=== PATIENT | male | born 1980 | race Two or more races ===

== ENCOUNTER 2016-06-25 22:00 | Emergency (ER) | payer OTHER ==
[2016-06-25] MEDS ORDERED: ASPIRIN 81 MG TABLET, CHEWABLE PO ONE ×2 (22:06→22:07)
--- NOTE | 2016-06-25 22:11 | ER Document Report ---
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 He states he has no pain at this time. States that he has had chest pain with anxiety in the past. I have greeted and performed a rapid initial assessment of this patient. A comprehensive ED assessment, evaluation of the patient, analysis of test results , and completion of the medical decision making process will be contacted by additional ED providers. TRAVEL OUTSIDE OF THE [place] IN LAST 30 DAYS: No - Related Data Allergies/Adverse Reactions: promethazine HCl [From Phenergan] Allergy (Verified 01/13/16 20:41) Past Medical History GI Medical History: Reports: Hx Gastroesophageal Reflux Disease - Immunizations Hx Diphtheria, Pertussis, Tetanus Vaccination: Yes
--- NOTE | 2016-06-26 09:39 | EKG REPORT ---
SEVERITY:- NORMAL ECG - SINUS RHYTHM ST ELEV, PROBABLE NORMAL EARLY REPOL PATTERN : Confirmed by: Birdgett Garza MD 26-Jun-2016 09:39:15
== END 2016-06-25 22:26 | disposition left against medical advice (07) ==
LOC: ER 22:00
DX: F41.9 Anxiety disorder, unspecified (principal); R07.9 Chest pain, unspecified; Z88.8 Allergy status to other drugs, medicaments and biological substances; Z87.19 Personal history of other diseases of the digestive system; Z53.20 Procedure and treatment not carried out because of patient's decision for unspecified reasons
CPT/HCPCS: 93005; 93010; 99281

== ENCOUNTER 2016-06-29 10:45 | Emergency (ER) | payer OTHER ==
--- NOTE | 2016-06-29 10:57 | ER Document Report ---
ED Medical Screen (RME) - General Stated Complaint: CHEST PAIN Notes: 36 yo male c/o pain to ribcage, upper back x 2 days. hurts with movement and deep breathing. pt has hx/o anxiety. had panic attack last week with syncopal episode. pt was evaluted by pcm after attack. denies chest pain, no shortness of breath. + chest wall sore soreness. TRAVEL OUTSIDE OF THE [place] IN LAST 30 DAYS: No - Related Data Allergies/Adverse Reactions: promethazine HCl [From Phenergan] Allergy (Verified 01/13/16 20:41) Past Medical History GI Medical History: Reports: Hx Gastroesophageal Reflux Disease - Immunizations Hx Diphtheria, Pertussis, Tetanus Vaccination: Yes
--- NOTE | 2016-06-29 12:32 | ER Document Report ---
ED General - General Chief Complaint: Chest Wall Pain Stated Complaint: CHEST PAIN Mode of Arrival: Ambulatory Information source: Patient Notes: 36 y/o M presents to ED c/o persistent pain to bilateral upper chest wall and back over the last 2 days. Patient reports history of anxiety and states had an anxiety attack 2 days ago after which he developed pain which she describes as achiness/soreness to bilateral upper chest and bilateral upper back. Reports pain is worse with movement of torso and deep breathing. Denies fevers , shortness of breath, nausea or vomiting, or diaphoresis. Reports multiple similar episodes in the past. TRAVEL OUTSIDE OF THE [place] IN LAST 30 DAYS: No - HPI Onset/Duration: Persistent Quality of pain: Achy Severity: Mild Pain Level: 2 Associated symptoms: Body/muscle aches Exacerbated by: Movement, Deep breathing Similar symptoms previously: Yes Recently seen / treated by doctor: Yes - Related Data Allergies/Adverse Reactions: promethazine HCl [From Phenergan] Allergy (Verified 06/29/16 10:57) Past Medical History - General Information source: Patient - Social History Smoking Status: Current Every Day Smoker Chew tobacco use (# tins/day): No Frequency of alcohol use: None Drug Abuse: None Lives with: Family Family History: DM, Hyperlipidemia, Hypertension, Reviewed & Not Pertinent Patient has suicidal ideation: No Patient has homicidal ideation: No Renal/ Medical History: Denies: Hx Peritoneal Dialysis GI Medical History: Reports: Hx Gastroesophageal Reflux Disease Psychiatric Medical History: Reports: Hx Anxiety Surgical Hx: Negative - Immunizations Hx Diphtheria, Pertussis, Tetanus Vaccination: Yes Review of Systems - Review of Systems Constitutional: No symptoms reported EENT: No symptoms reported Cardiovascular: See HPI Respiratory: See HPI Gastrointestinal: No symptoms reported Genitourinary: No symptoms reported Male Genitourinary: No symptoms reported Musculoskeletal: No symptoms reported Skin: No symptoms reported Hematologic/Lymphatic: No symptoms reported Neurological/Psychological: No symptoms reported -: Yes All other systems reviewed and negative Physical Exam - Vital signs Interpretation: Normal - General General appearance: Appears well, Alert In distress: None - HEENT Head: Normocephalic, Atraumatic Eyes: Normal Pupils: PERRL - Respiratory Respiratory status: No respiratory distress Chest status: Tender - Mild tenderness to palpation to bilateral upper chest wall and bilateral upper back. Patient reports reproduced pain with palpation is the pain he has been feeling over the last 2 days., Pain on movement. No: Nontender, Chest mass, Ecchymosis, No pleuritic chest pain, Pain with cough, Pain with deep breathing, Wounds, Accessory muscle use, Prolonged expirations, Splinting, Other Breath sounds: Normal - CTAB Chest palpation: Tender. No: Normal, Flail segment, [place] frothy sputum, Purulent sputum, Subcutaneous emphysema, Sucking chest wound, Ecchymosis, Wounds , Other - Cardiovascular Rhythm: Regular Heart sounds: Normal auscultation Murmur: No Friction rub: No Nora's crunch: No Pulses: Normal: Radial Normal capillary refill: Yes - Abdominal Inspection: Normal Distension: No distension Bowel sounds: Normal Tenderness: Nontender Organomegaly: No organomegaly - Back Back: Normal, Nontender - Extremities General upper extremity: Normal inspection, Nontender, Normal color, Normal ROM , Normal strength, Normal temperature. No: Tender, Edema General lower extremity: Normal inspection, Nontender, Normal color, Normal ROM , Normal strength, Normal temperature, Normal weight bearing. No: Tender, Edema - Neurological Neuro grossly intact: Yes Cognition: Normal Orientation: AAOx4 [place] Coma Scale Eye Opening: Spontaneous [place] Coma Scale Verbal: Oriented [place] Coma Scale Motor: Obeys Commands [place] Coma Scale Total: 15 Speech: Normal Motor strength normal: LUE, RUE, LLE, RLE Sensory: Normal - Psychological Associated symptoms: Normal affect, Normal mood - Skin Skin Temperature: Warm Skin Moisture: Dry Skin Color: Normal Course - Re-evaluation Re-evalutation: 06/29/16 12:10 Patient hemodynamically stable, in no distress, afebrile, and appears well- hydrated. Patient is very well-appearing and presents with chest wall pain not suggestive of pulmonary embolus, cardiac ischemia, aortic dissection, or other serious etiology. Given the extremely low risk of these diagnoses further testing and evaluation for these possibilities does not appear to be indicated at this time. The patient appears stable for discharge and has been instructed to return if the symptoms worsen or change in any way. Patient presentation, evaluation, and treatment plan discussed with ED physician Dr. Ferreira who concurs with evaluation and treatment. Discharge - Discharge Clinical Impression: Chest wall pain Condition: Stable Disposition: HOME, SELF-CARE Instructions: Chest Wall Pain ([facility]), Anti-Inflammatory Medication ([facility]), Muscle Relaxers ([facility]), Chest Pain of Unclear Cause ([facility]) Additional Instructions: Follow-up with your primary care provider tomorrow as discussed. Return to the emergency department for any worsening symptoms or concerns. Prescriptions: Methocarbamol [Robaxin 500 mg Tablet] 500 mg PO Q8HP PRN #10 tablet PRN Reason: Naproxen [Naprosyn 375 Mg Tablet] 375 mg PO BIDP PRN #10 tablet PRN Reason: Referrals: ALLEY HOWE DO [NO LOCAL MD] - Follow up tomorrow
== END 2016-06-29 12:37 | disposition home or self-care (01) ==
LOC: ER 10:45
DX: R07.9 Chest pain, unspecified (principal); M79.1 Myalgia; F17.200 Nicotine dependence, unspecified, uncomplicated
CPT/HCPCS: 99283

== ENCOUNTER 2016-07-02 01:43 | Emergency (ER) | payer SELFPAY ==
[2016-07-02] MEDS ORDERED: ASPIRIN 81 MG TABLET, CHEWABLE PO ONE (02:00)
[2016-07-02 03:08] LABS: ABSOLUTE EOSINOPHILS # (AUTO) 0.3 10^3/uL (0.0-0.6); ABSOLUTE LYMPHOCYTES (AUTO) 2.7 10^3/uL (0.5-4.7); ABSOLUTE MONOCYTES (AUTO) 0.5 10^3/uL (0.1-1.4); ABSOLUTE NEUT (AUTO) 3.4 10^3/uL (1.7-8.2); BASOPHILS % (AUTO) 0.6 % (0-2); EOSINOPHILS % (AUTO) 3.9 % (0-6); HEMATOCRIT 42.6 % (37.9-51.0); HEMOGLOBIN 14.7 g/dL (13.5-17.0); HGB HCT DIFFERENCE 1.5; LYMPHOCYTES % (AUTO) 38.4 % (13-45); MEAN CORPUSCULAR HEMOGLOBIN 30.2 pg (27.0-33.4); MEAN CORPUSCULAR HGB CONC 34.6 g/dL (32.0-36.0); MEAN CORPUSCULAR VOLUME 87 fl (80-97); MONOCYTES % (AUTO) 7.9 % (3-13); RED BLOOD COUNT 4.89 10^6/uL (4.35-5.55); RED CELL DISTRIBUTION WIDTH 12.8 % (11.5-14.0); SEGMENTED NEUTROPHILS % (AUTO) 49.2 % (42-78); WHITE BLOOD COUNT 6.9 10^3/uL (4.0-10.5)
[2016-07-02 03:24] LABS: ALANINE AMINOTRANSFERASE 49 U/L (21-72); ALBUMIN 3.8 g/dL (3.5-5.0); ALKALINE PHOSPHATASE 69 U/L (38-126); ANION GAP 11 (5-19); ASPARTATE AMINO TRANSFERASE 27 U/L (17-59); BILIRUBIN,TOTAL 0.4 mg/dL (0.2-1.3); BLOOD UREA NITROGEN 15 mg/dL (7-20); CALCIUM 9.4 mg/dL (8.4-10.2); CARBON DIOXIDE 27 mmol/L (22-30); CHLORIDE 104 mmol/L (98-107); CREATINE KINASE 225 U/L (55-170); CREATININE RESULT 0.78 mg/dL (0.52-1.25); GLUCOSE 85 mg/dL (75-110); POTASSIUM 3.8 mmol/L (3.6-5.0); SODIUM 142.2 mmol/L (137-145); TOTAL PROTEIN 6.7 g/dL (6.3-8.2)
[2016-07-02 03:35] LABS: CREATINE KINASE MB 0.96 ng/mL (<4.55)
[2016-07-02 03:38] LABS: TROPONIN I < 0.012 ng/mL
--- NOTE | 2016-07-02 06:20 | ER Document Report ---
[id number] Mode of Arrival: Ambulatory Information source: Patient Notes: 36-year-old male presents with epigastric burning sensation. Of now 6 month duration. Patient denies any fevers chills nausea vomiting or diarrhea. Patient notes it hurts when you palpate on his chest. Patient has been seen multiple times for similar complaints diagnosed with costochondritis. Patient notes he has nausea vomiting daily heartburn daily TRAVEL OUTSIDE OF THE [place] IN LAST 30 DAYS: No - HPI Onset: Other Onset/Duration: Persistent Quality of pain: Burning Severity: Mild Pain Level: 1 Associated symptoms: Chest pain Exacerbated by: Food Relieved by: Denies Similar symptoms previously: Yes Recently seen / treated by doctor: Yes - Related Data Allergies/Adverse Reactions: promethazine HCl [From Phenergan] Allergy (Verified 07/02/16 03:09) Past Medical History - Social History Smoking Status: Never Smoker Cigarette use (# per day): No Chew tobacco use (# tins/day): No Smoking Education Provided: No Frequency of alcohol use: None Drug Abuse: None Family History: DM, Hyperlipidemia, Hypertension, Reviewed & Not Pertinent Patient has suicidal ideation: No Patient has homicidal ideation: No Renal/ Medical History: Denies: Hx Peritoneal Dialysis GI Medical History: Reports: Hx Gastroesophageal Reflux Disease Musculoskeltal Medical History: Psychiatric Medical History: Reports: Hx Anxiety Traumatic Medical History: Surgical Hx: Negative Past Surgical History: - Immunizations Hx Diphtheria, Pertussis, Tetanus Vaccination: Yes Review of Systems - Review of Systems Notes: REVIEW OF SYSTEMS: CONSTITUTIONAL : Denies fever, chills, or sweats. Denies recent illness. EENT: Denies eye, ear, throat, or mouth pain or symptoms. Denies nasal or sinus congestion or discharge. Denies throat, tongue, or mouth swelling or difficulty swallowing. CARDIOVASCULAR: Denies chest pain. Denies palpitations or racing or irregular heart beat. Denies ankle edema. RESPIRATORY: Denies cough, cold, or chest congestion. Denies shortness of breath, difficulty breathing, or wheezing. GASTROINTESTINAL: Admits nausea vomiting GENITOURINARY: Denies difficulty urinating, painful urination, burning, frequency, blood in urine, or discharge. MUSCULOSKELETAL: Denies back or neck pain or stiffness. Denies joint pain or swelling. SKIN: Denies rash, lesions or sores. HEMATOLOGIC : Denies easy bruising or bleeding. LYMPHATIC: Denies swollen, enlarged glands. NEUROLOGICAL: Denies confusion or altered mental status. Denies passing out or loss of consciousness. Denies dizziness or lightheadedness. Denies headache. Denies weakness or paralysis or loss of use of either side. Denies problems with gait or speech. Denies sensory loss, numbness, or tingling. Denies seizures. PSYCHIATRIC: Denies anxiety or stress. Denies depression, suicidal ideation, or homicidal ideation. ALL OTHER SYSTEMS REVIEWED AND NEGATIVE. Dictation was performed using [employer] voice recognition software PHYSICAL EXAMINATION: GENERAL: Well-appearing, well-nourished and in no acute distress. HEAD: Atraumatic, normocephalic. EYES: Pupils equal round and reactive to light, extraocular movements intact, sclera anicteric, conjunctiva are normal. ENT: Nares patent, oropharynx clear without exudates. Moist mucous membranes. NECK: Normal range of motion, supple without lymphadenopathy LUNGS: Breath sounds clear to auscultation bilaterally and equal. No wheezes rales or rhonchi. HEART: Regular rate and rhythm without murmurs ABDOMEN: Soft, nontender, nondistended abdomen. No guarding, no rebound. No masses appreciated. Musculoskeletal: Normal range of motion, no pitting or edema. No cyanosis. Chest wall is tender on palpation NEUROLOGICAL: Cranial nerves grossly intact. Normal speech, normal gait. Normal sensory, motor exams PSYCH: Normal mood, normal affect. SKIN: Warm, Dry, normal turgor, no rashes or lesions noted. Physical Exam - Vital signs Vitals: Temp Pulse Resp BP Pulse Ox 97.8 F 65 18 124/72 96 07/02/16 01:54 07/02/16 01:54 07/02/16 01:54 07/02/16 01:54 07/02/16 01:54 Course - Re-evaluation Re-evalutation: 07/02/16 06:17 since patient has had chest pain daily for 6 months, worsened with daily vomiting , i have suspicions that this is esophageal related rather than cardiac in nature. pt will be started on medication for this, given gi and cardiology follow up After performing a Medical Screening Examination, I estimate there is LOW risk for RUPTURED ESOPHAGUS, PNEUMOTHORAX, PULMONARY EMBOLISM, ACUTE CORONARY SYNDROME, OR THORACIC AORTIC DISSECTION, thus I consider the discharge disposition reasonable. The patient and I have discussed the diagnosis and risks , and we agree with discharging home with close follow-up. We also discussed returning to the Emergency Department immediately if new or worsening symptoms occur. We have discussed the symptoms which are most concerning (e.g., bloody sputum, worsening pain or shortness of breath) that necessitate immediate return. 07/02/16 16:59 - Vital Signs Vital signs: Temp Pulse Resp BP Pulse Ox 97.5 F 65 14 104/75 98 07/02/16 06:01 07/02/16 01:54 07/02/16 06:01 07/02/16 06:01 07/02/16 06:01 - Laboratory Result Diagrams: 07/02/16 02:35 07/02/16 02:35 Laboratory results interpreted by me: 07/02/16 02:35 Creatine Kinase 225 H - Diagnostic Test Radiology reviewed: Image reviewed, Reports reviewed - EKG Interpretation by Me EKG shows normal: Sinus rhythm, [place], Intervals, QRS Complexes Discharge - Discharge Clinical Impression: Esophagitis Chest pain Qualifiers: Chest pain type: unspecified Qualified Code(s): R07.9 - Chest pain, unspecified Condition: Stable Disposition: HOME, SELF-CARE Instructions: Chest Pain of Unclear Cause ([facility]), Esophagitis ([facility]) Prescriptions: Famotidine [Pepcid 20 mg Tablet] 20 mg PO DAILY #30 tablet Metoclopramide HCl [Reglan] 10 mg PO Q8 #20 tablet Omeprazole Magnesium [Prilosec Otc] 20 mg PO DAILY #30 tablet.dr Referrals: BERNADETTE FULLER MD [ACTIVE STAFF] - Follow up in 1 week TONEY REBOLLEDO MD [ACTIVE STAFF] - Follow up in 1 week
[2016-07-02 06:26] VITALS: BP 104/75
--- NOTE | 2016-07-02 09:26 | EKG REPORT ---
SEVERITY:- ABNORMAL ECG - SINUS RHYTHM ST ELEVATION SUGGESTS PERICARDITIS : Confirmed by: Angelina Grove 02-Jul-2016 09:25:38
== END 2016-07-02 06:30 | disposition home or self-care (01) ==
LOC: ER 01:43
DX: K20.9 Esophagitis, unspecified (principal); R12 Heartburn; R07.9 Chest pain, unspecified; R11.2 Nausea with vomiting, unspecified; Z88.8 Allergy status to other drugs, medicaments and biological substances
CPT/HCPCS: 36415; 71010; 80053; 82550; 82553; 84484; 85025; 93005; 93010; 99285

== ENCOUNTER → 2016-11-21 | Outpatient (CLI) | payer SELFPAY ==
[2016-11-21 11:16] LABS: SPERM MORPHOLOGY SENT TO REFERENC LAB
[2016-11-21 12:37] LABS: ROUND CELL CONC. 1.9 X10^6/mL (<5.1); SA DILUTION CNT 1 267; SA DILUTION CNT 2 275; SA DILUTION FACTOR 2; SA NONMOTILE CONCENTRATION 25.8 X10^6/mL; SA NONMOTILE COUNT1 244; SA NONMOTILE COUNT2 271; SA ROUND CELL COUNT1 18; SA ROUND CELL COUNT2 20; SA SPERM MOTILE CONC 28.4 X10^6mL; TOTAL SPERM COUNT 162.6 X10^6 (>33.0)
[2016-11-21 12:38] LABS: SPERM PROGRESSION 2
== END ==
LOC: LAB 10:52
PROVIDERS: ATTEND Specialist
DX: Z31.41 Encounter for fertility testing (principal)
CPT/HCPCS: 89320

== ENCOUNTER 2016-12-17 15:17 | Emergency (ER) | payer SELFPAY ==
[2016-12-17 15:23] VITALS: BP 123/78
--- NOTE | 2016-12-17 15:49 | ER Document Report ---
HPI - HPI Patient complains to provider of: sinus infection Pain Level: 4 Context: 36 yo male presents with 10 day hx/o sinus congestion, pressure, facial pain, sore throat Associated Symptoms: Earache, Fever, Headache, Sinus pain/drainage, Sore throat Exacerbated by: Denies Relieved by: Denies Similar symptoms previously: Yes Recently seen / treated by doctor: No - ROS Systems Reviewed and Negative: Yes All other systems reviewed and negative - DERM Skin Color: Normal Past Medical History - General Information source: Patient - Social History Smoking Status: Never Smoker Frequency of alcohol use: None Drug Abuse: None Lives with: Family Family History: DM, Hyperlipidemia, Hypertension, Reviewed & Not Pertinent - Medical History Medical History: Negative Renal/ Medical History: Denies: Hx Peritoneal Dialysis GI Medical History: Reports: Hx Gastroesophageal Reflux Disease Musculoskeltal Medical History: Psychiatric Medical History: Reports: Hx Anxiety Traumatic Medical History: Past Surgical History: - Immunizations Hx Diphtheria, Pertussis, Tetanus Vaccination: Yes Vertical Provider Document - CONSTITUTIONAL Agree With Documented VS: Yes Exam Limitations: No Limitations General Appearance: WD/WN, No Apparent Distress - INFECTION CONTROL TRAVEL OUTSIDE OF THE [place] IN LAST 30 DAYS: Yes - [facility] last week - HEENT HEENT: Atraumatic, PERRLA, Pharyngeal Tenderness, Pharyngeal Erythema Notes: TMs dull and retracted, sinuses tap tender - NECK Neck: Supple, Lymphadenopathy-Left, Lymphadenopathy-Right - RESPIRATORY Respiratory: Breath Sounds Normal, No Respiratory Distress O2 Sat by Pulse Oximetry: 98 - CARDIOVASCULAR Cardiovascular: Regular Rate, Regular Rhythm - NEURO Level of Consciousness: Awake, Alert, Appropriate - DERM Integumentary: Warm, Dry, No Rash Course - Vital Signs Vital signs: Temp Pulse Resp BP Pulse Ox 98.2 F 76 18 123/78 98 12/17/16 15:20 12/17/16 15:20 12/17/16 15:20 12/17/16 15:20 12/17/16 15:20 Discharge - Discharge Clinical Impression: Sinusitis Qualifiers: Sinusitis location: unspecified location Chronicity: acute Recurrence: non- recurrent Qualified Code(s): J01.90 - Acute sinusitis, unspecified Condition: Stable Disposition: HOME, SELF-CARE Instructions: Sinusitis ([facility]), Antibiotic Therapy ([facility]) Additional Instructions: take medications as prescribed push fluids follow up primary care if symptoms persist Prescriptions: Amoxicillin Trihydrate [Amoxil 875 mg Tablet] 1 tab PO BID #20 tablet Fluticasone Propionate [Flonase Nasal [place] 50 Mcg/[place] 16 gm] 2 spray NASL DAILY #1 inhaler Prednisone [Deltasone 20 mg Tablet] 2 tab PO BID #16 tablet
== END 2016-12-17 15:50 | disposition home or self-care (01) ==
LOC: ER 15:17
DX: J01.90 Acute sinusitis, unspecified (principal); F41.9 Anxiety disorder, unspecified; K21.9 Gastro-esophageal reflux disease without esophagitis; Z83.3 Family history of diabetes mellitus; Z82.49 Family history of ischemic heart disease and other diseases of the circulatory system
CPT/HCPCS: 99283

== ENCOUNTER 2017-03-16 23:05 | Emergency (ER) | payer BC ==
[2017-03-16] MEDS ORDERED: ASPIRIN 81 MG TABLET, CHEWABLE PO ONE (23:13)
[2017-03-16] MEDS ORDERED: NORMAL SALINE 1000 ML 1,000 ML IV ONE (23:14)
[2017-03-16 23:38] LABS: ABSOLUTE BASOPHILS # (AUTO) 0.1 10^3/uL (0.0-0.2); ABSOLUTE EOSINOPHILS # (AUTO) 0.2 10^3/uL (0.0-0.6); ABSOLUTE LYMPHOCYTES (AUTO) 2.5 10^3/uL (0.5-4.7); ABSOLUTE MONOCYTES (AUTO) 0.4 10^3/uL (0.1-1.4); ABSOLUTE NEUT (AUTO) 3.3 10^3/uL (1.7-8.2); BASOPHILS % (AUTO) 0.8 % (0-2); EOSINOPHILS % (AUTO) 2.4 % (0-6); HEMATOCRIT 40.9 % (37.9-51.0); HEMOGLOBIN 14.7 g/dL (13.5-17.0); HGB HCT DIFFERENCE 3.2; LYMPHOCYTES % (AUTO) 38.8 % (13-45); MEAN CORPUSCULAR HEMOGLOBIN 31.3 pg (27.0-33.4); MEAN CORPUSCULAR HGB CONC 35.9 g/dL (32.0-36.0); MEAN CORPUSCULAR VOLUME 87 fl (80-97); MONOCYTES % (AUTO) 6.3 % (3-13); RED BLOOD COUNT 4.69 10^6/uL (4.35-5.55); RED CELL DISTRIBUTION WIDTH 12.9 % (11.5-14.0); SEGMENTED NEUTROPHILS % (AUTO) 51.7 % (42-78); WHITE BLOOD COUNT 6.4 10^3/uL (4.0-10.5)
[2017-03-16 23:50] LABS: ALANINE AMINOTRANSFERASE 47 U/L (21-72); ALBUMIN 4.2 g/dL (3.5-5.0); ALKALINE PHOSPHATASE 72 U/L (38-126); ANION GAP 11 (5-19); ASPARTATE AMINO TRANSFERASE 23 U/L (17-59); BILIRUBIN,DIRECT 0.4 mg/dL (0.0-0.4); BILIRUBIN,TOTAL 0.5 mg/dL (0.2-1.3); BLOOD UREA NITROGEN 13 mg/dL (7-20); CALCIUM 9.2 mg/dL (8.4-10.2); CARBON DIOXIDE 26 mmol/L (22-30); CHLORIDE 107 mmol/L (98-107); CREATINE KINASE 152 U/L (55-170); GLUCOSE 117 mg/dL (75-110); POTASSIUM 3.7 mmol/L (3.6-5.0); SODIUM 143.7 mmol/L (137-145); TOTAL PROTEIN 6.6 g/dL (6.3-8.2)
[2017-03-17 00:02] LABS: CREATINE KINASE MB 0.69 ng/mL (<4.55); TROPONIN I < 0.012 ng/mL
[2017-03-17] MEDS ORDERED: NORMAL SALINE 1000 ML 1,000 ML IV ONE (00:18)
--- NOTE | 2017-03-17 00:21 | ER Document Report ---
ED Syncope and Near Syncope - General Mode of Arrival: Medic Information source: Patient TRAVEL OUTSIDE OF THE [place] IN LAST 30 DAYS: Yes - [facility] last week - HPI Patient complains to provider of: Fainting Symptoms prior to episode: Lightheaded Position/Activity at time of episode: Standing Context: Other - see notes above Current symptoms: Other - see notes above <LOWELL CASTILLO - Last Filed: 03/17/17 00:33> <JUAN AVILA - Last Filed: 03/17/17 04:10> - General Stated Complaint: FAINTING Time Seen by Provider: 03/16/17 23:12 Notes: 37 year old male with history of chest pain and panic attacks presents to the ED complaining of having a near syncopal episode earlier this evening. Patient reports that he developed some chest pain which radiated to his left shoulder while at work. Patient felt light headed while driving home which was exacerbated when he stood up in his drive way. Patient walked to his room, removed his shirt, and proceeded to fall. Patient states that he was not having chest pain or a racing heart at the time of the fall. Patient reports this has happened once before, but lost consciousness that time. Patient denies nausea, vomiting, or abdominal pain. Patient is additionally complaining of tingling and numbness to the face, nose, and around the lips. Patient admits that he has not been well hydrated today. (LOWELL CASTILLO) - Related Data Allergies/Adverse Reactions: promethazine HCl [From Phenergan] Allergy (Verified 07/02/16 03:09) Past Medical History - General Information source: Patient - Social History Smoking Status: Current Every Day Smoker Family History: DM, Hyperlipidemia, Hypertension, Reviewed & Not Pertinent Renal/ Medical History: Denies: Hx Peritoneal Dialysis GI Medical History: Reports: Hx Gastroesophageal Reflux Disease Musculoskeltal Medical History: Psychiatric Medical History: Reports: Hx Anxiety Traumatic Medical History: Past Surgical History: - Immunizations Hx Diphtheria, Pertussis, Tetanus Vaccination: Yes <LOWELL CASTILLO - Last Filed: 03/17/17 00:33> Review of Systems - Review of Systems Constitutional: No symptoms reported EENT: No symptoms reported Cardiovascular: See HPI, Chest pain, Syncope, Lightheaded Respiratory: No symptoms reported Gastrointestinal: No symptoms reported. denies: Abdominal pain, Nausea, Vomiting Genitourinary: No symptoms reported Male Genitourinary: No symptoms reported Musculoskeletal: No symptoms reported Skin: No symptoms reported Hematologic/Lymphatic: No symptoms reported Neurological/Psychological: See HPI, Numbness - face, nose, and around the lips , Tingling - face, nose, and around the lips -: Yes All other systems reviewed and negative <LOWELL CASTILLO - Last Filed: 03/17/17 00:33> Physical Exam - Vital signs Interpretation: Normal - General General appearance: Appears well, Alert - HEENT Head: Normocephalic, Atraumatic Eyes: Normal Pupils: PERRL Mucous membranes: Dry - Respiratory Respiratory status: No respiratory distress Chest status: Nontender Breath sounds: Normal Chest palpation: Normal - Cardiovascular Rhythm: Regular Heart sounds: Normal auscultation Murmur: No - Abdominal Inspection: Normal Distension: No distension Bowel sounds: Normal Tenderness: Nontender Organomegaly: No organomegaly - Back Back: Normal, Nontender - Extremities General upper extremity: Normal inspection, Nontender, Normal color, Normal ROM , Normal temperature General lower extremity: Normal inspection, Nontender, Normal color, Normal ROM , Normal temperature, Normal weight bearing. No: Judy's sign - Neurological Neuro grossly intact: Yes Cognition: Normal Orientation: AAOx4 [place] Coma Scale Eye Opening: Spontaneous [place] Coma Scale Verbal: Oriented [place] Coma Scale Motor: Obeys Commands [place] Coma Scale Total: 15 Speech: Normal Motor strength normal: LUE, RUE, LLE, RLE Sensory: Normal - Psychological Associated symptoms: Normal affect, Normal mood - Skin Skin Temperature: Warm Skin Moisture: Dry Skin Color: Normal <JUAN AVILA - Last Filed: 03/17/17 04:10> - Vital signs Vitals: Temp 98.7 F 03/16/17 23:09 Course - Laboratory Result Diagrams: 03/16/17 23:27 03/16/17 23:27 <LOWELL CASTILLO - Last Filed: 03/17/17 00:33> - Laboratory Result Diagrams: 03/16/17 23:27 03/16/17 23:27 <JUAN AVILA - Last Filed: 03/17/17 04:10> - Re-evaluation Re-evalutation: 03/17/17 04:08 Patient is a 37-year-old male who comes in after a near syncopal episode at home. Patient initially was in A. fib with rate 130. Resolved after fluids. Patient states that he did feel his heart racing earlier. Patient had been given aspirin and nitroglycerin by EMS which made him nauseated. Patient does not have any chest pain and has not had any chest pain. Feels better after GI medications. Patient will be referred to cardiac etiology and GI for follow- up. Troponin negative 2. Patient is in normal sinus rhythm on repeat EKG and has been for most of the time in the emergency department. Feels better and would like to go home. Stable for discharge. Return if any worsening or concerning symptoms. (JUAN AVILA) - Vital Signs Vital signs: Temp Pulse Resp BP Pulse Ox 98.4 F 84 19 105/63 98 03/17/17 00:09 03/17/17 00:09 03/17/17 03:46 03/17/17 03:46 03/17/17 03:46 - Laboratory Laboratory results interpreted by me: 03/16/17 03/16/17 23:27 23:45 Glucose 117 H Urine Urobilinogen 2.0 H Discharge <LOWELL CASTILLO - Last Filed: 03/17/17 00:33> <JUAN AVILA - Last Filed: 03/17/17 04:10> - Discharge Clinical Impression: Tachycardia Syncope Qualifiers: Syncope type: unspecified Qualified Code(s): R55 - Syncope and collapse Gastritis Qualifiers: Gastritis type: unspecified gastritis Chronicity: unspecified Gastritis bleeding: without bleeding Qualified Code(s): K29.70 - Gastritis, unspecified, without bleeding Condition: Stable Disposition: HOME, SELF-CARE Instructions: Dehydration ([facility]), Gastritis ([facility]), Gastroenterology, Near Syncopal Episode ([facility]) Prescriptions: Ondansetron [Zofran Odt 4 mg Tablet] 1 tab PO Q6HP PRN #15 tab.rapdis PRN Reason: For Nausea/Vomiting Omeprazole 20 mg PO DAILY #30 tablet. Ranitidine HCl 150 mg PO BID #60 tablet Referrals: BERNADETTE FULLER MD [ACTIVE STAFF] - Follow up as needed RUBENS,SHYAMAL SRI, MD [ACTIVE STAFF] - Follow up as needed Scribe Attestation: 03/17/17 04:10 I personally performed the services described in the documentation, reviewed and edited the documentation which was dictated to the scribe in my presence, and it accurately records my words and actions. (JUAN AVILA) Scribe Documentation - Scribe Written by Scribe:: Lois Morales, 03/17/2017, 0048 acting as scribe for :: Sunil <LOWELL CASTILLO - Last Filed: 03/17/17 00:33>
--- NOTE | 2017-03-17 01:06 | RADIOLOGY REPORT (SQ) ---
EXAM DESCRIPTION: CHEST PA/LAT COMPLETED DATE/TIME: 03/17/2017 12:37 am REASON FOR STUDY: Chest pain COMPARISON: Chest x-ray 01/13/2016. EXAM PARAMETERS: NUMBER OF VIEWS: two views TECHNIQUE: Digital Frontal and Lateral radiographic views of the chest acquired. RADIATION DOSE: NA LIMITATIONS: none FINDINGS: LUNGS AND PLEURA: No consolidation, pneumothorax or pleural effusion. MEDIASTINUM AND HILAR STRUCTURES: No masses or contour abnormalities. HEART AND VASCULAR STRUCTURES: Heart normal size. No evidence for failure. BONES: No acute findings. HARDWARE: None in the chest. IMPRESSION: No acute radiographic finding in the chest. TECHNICAL DOCUMENTATION: JOB ID: [id number] [employer]- All Rights Reserved
[2017-03-17 01:21] LABS: APPEARANCE,URINE CLOUDY; BILIRUBIN,URINE NEGATIVE (NEGATIVE); GLUCOSE, URINE NEGATIVE (NEGATIVE); KETONES,URINE NEGATIVE (NEGATIVE); LEUKOCYTE ESTERASE,URINE NEGATIVE (NEGATIVE); NITRITE,URINE NEGATIVE (NEGATIVE); PROTEIN,URINE NEGATIVE (NEGATIVE); URINE SPECIFIC GRAVITY 1.018
[2017-03-17 01:35] LABS: URINE BARBITURATES SCREEN NEGATIVE; URINE METHADONE SCREEN NEGATIVE; URINE OPIATES LOW NEGATIVE; URINE PHENCYCLIDINE SCREEN NEGATIVE
[2017-03-17] MEDS ORDERED: PANTOPRAZOLE SODIUM 40 MG VIAL IV ONE (01:39)
[2017-03-17] MEDS ORDERED: ONDANSETRON HCL INJ/PF 4 MG/2 ML SDV IV ONE (01:39)
[2017-03-17] MEDS ORDERED: FAMOTIDINE INJ/PF 20 MG/2 ML SDV IV ONE (01:39)
[2017-03-17 03:49] VITALS: BP 105/63
--- NOTE | 2017-03-17 12:24 | EKG REPORT ---
SEVERITY:- ABNORMAL ECG - ATRIAL FIBRILLATION, V-RATE 104-153 ST ELEVATION SUGGESTS PERICARDITIS : Confirmed by: Bridgett Garza MD 17-Mar-2017 12:23:32
--- NOTE | 2017-03-17 12:24 | EKG REPORT ---
SEVERITY:- NORMAL ECG - SINUS RHYTHM : Confirmed by: Bridgett Garza MD 17-Mar-2017 12:23:28
== END 2017-03-17 03:51 | disposition home or self-care (01) ==
LOC: ER 23:05
DX: R55 Syncope and collapse (principal); K29.70 Gastritis, unspecified, without bleeding; I48.91 Unspecified atrial fibrillation; R20.0 Anesthesia of skin; R00.0 Tachycardia, unspecified; R20.2 Paresthesia of skin; F17.200 Nicotine dependence, unspecified, uncomplicated; Z88.8 Allergy status to other drugs, medicaments and biological substances
CPT/HCPCS: 93005 ×2; 99284; 96361; 96375; 96365; 36415; 82553; 82550; 84443; 85025; 80053; 81001; 84484; 80307; 71020; 93010 ×2; S0164; J2405; J7030 ×2; S0028

== ENCOUNTER 2018-03-13 22:09 | Emergency (ER) | payer BC ==
[2018-03-13 22:24] VITALS: BP 133/80
[2018-03-13] MEDS ORDERED: DIPHENHYDRAMINE HCL 50 MG/ML VIAL IV ONE (22:26)
[2018-03-13] MEDS ORDERED: METHYLPREDNISOLONE INJ 125 MG/2 ML SDV IV ONE (22:26)
[2018-03-13] MEDS ORDERED: FAMOTIDINE 20 MG TABLET PO ONE (22:26)
[2018-03-13] MEDS ORDERED: ONDANSETRON HCL INJ/PF 4 MG/2 ML SDV IV ONE (22:27)
[2018-03-13] MEDS ORDERED: LORAZEPAM INJ 2 MG/1 ML VIAL IV ONE (22:27)
--- NOTE | 2018-03-13 22:34 | ER Document Report ---
ED Medical Screen (RME) - General Chief Complaint: Allergic Reaction Stated Complaint: POSS ALLERGIC REACTION,DIFFICULTY BREATHING Time Seen by Provider: 03/13/18 22:25 Mode of Arrival: Ambulatory Information source: Patient, Friend Notes: Patient is a 37-year-old male who comes emergency room complaining of allergic reaction. Patient states he had a root canal performed earlier today and he was giving Tylenol 3pills for his discomfort and pain along with Zithromax/Z- Sanjiv. Patient states he is not taking any of the antibiotic but he did take at noon a Tylenol 3 and at 6 PM he took a second Tylenol 3 approximately an hour after 2 hours later he started feeling like he had shortness of breath and gets shaky all over he vomited once and is progressively getting more short of breath. He also states it feels like his throat is dry. Does not feel like his lips are getting bigger or his tongue is bigger but it feels like his mouth is dry. Patient denies any other past medical history and currently takes no medications. He states that he is very sensitive to medications and that is why he takes very little. Any rash or itching. TRAVEL OUTSIDE OF THE [place] IN LAST 30 DAYS: No - HPI Patient complains to provider of: Allergic reaction Onset: This evening Onset/Duration: Gradual, Persistent, Worse Quality of pain: No pain Severity: Severe Pain Level: 4 Associated Symptoms: Cough (nonproductive), Dizzy/lightheaded, Nausea, Shortness of breath, Sweating, Vomiting Exacerbated by: Denies Relieved by: Denies Similar symptoms previously: No Recently seen / treated by doctor: Yes - Had the root canal today - Related Data Smoking: Non-smoker Frequency of alcohol use: None Drug Abuse: None Allergies/Adverse Reactions: promethazine HCl [From Phenergan] Allergy (Verified 07/02/16 03:09) Past Medical History - General Information source: Patient - Social History Cigarette use (# per day): Yes - Half-pack a day Chew tobacco use (# tins/day): No Frequency of alcohol use: None Drug Abuse: None 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 Lives with: Family Family history: Reviewed & Not Pertinent Renal/ Medical History: Denies: Hx Peritoneal Dialysis GI Medical History: Reports: Hx Gastroesophageal Reflux Disease Musculoskeltal Medical History: Psychiatric Medical History: Reports: Hx Anxiety Traumatic Medical History: Past Surgical History: - Immunizations Hx Diphtheria, Pertussis, Tetanus Vaccination: Yes Review of Systems - Review of Systems Constitutional: No symptoms reported EENT: No symptoms reported, Difficulty swallowing Cardiovascular: No symptoms reported Respiratory: See HPI, Cough, Short of breath, Wheezing Gastrointestinal: No symptoms reported Genitourinary: No symptoms reported Male Genitourinary: No symptoms reported Musculoskeletal: No symptoms reported Skin: No symptoms reported Hematologic/Lymphatic: No symptoms reported Neurological/Psychological: No symptoms reported -: Yes All other systems reviewed and negative Physical Exam - Vital signs Vitals: Temp Pulse BP Pulse Ox 97.9 F 76 133/80 H 100 03/13/18 22:20 03/13/18 22:20 03/13/18 22:20 03/13/18 22:20 Interpretation: Hypertensive - Notes Notes: Patient is a well-nourished well-developed 37-year-old male who is in obvious distress/anxiety state. Is diaphoretic and shaking all over - General General appearance: Alert, Anxious - HEENT Head: Normocephalic, Atraumatic Eyes: Normal Nasal: Normal Mouth/Lips: Other - Physical exam the oral cavity shows no overt angioedema of the lips or tongue. He is patent. No: Angioedema Mucous membranes: Dry Pharynx: Normal. No: Blood in hypopharynx, Erythema, Exudate, Peritonsillar abscess, Post nasal drainage, Retropharyngeal abscess, Tonsillar hypertrophy, Uvular edema, Potential airway comprom. Neck: Normal. No: Anterior cervical chain, Posterior cervical chain, Brudzinski , Carotid bruit, Kernig's, Lymphadenopathy, Meningismus, Neck mass, Shotty nodes , Subcutaneous emphysema, Supple, Thyroid nodule, Thyromegally - Respiratory Respiratory status: Respiratory distress, Pursed lip breathing. No: No respiratory distress, Cyanosis, Depressed respirations, Retractions, Tachypnea, Tripod position Chest status: Nontender Breath sounds: Decreased air movement, Nonproductive cough, Wheezing. No: Productive cough, Rales, Rhonchi, Stridor Chest palpation: Normal - Abdominal Inspection: Normal - Neurological Neuro grossly intact: Yes Cognition: Normal Orientation: AAOx4 [place] Coma Scale Eye Opening: Spontaneous [place] Coma Scale Verbal: Oriented [place] Coma Scale Motor: Obeys Commands [place] Coma Scale Total: 15 - Skin Skin Temperature: Warm Skin Moisture: Diaphoretic Skin Color: Pale Course - Vital Signs Vital signs: Temp Pulse Resp BP Pulse Ox 97.9 F 76 133/80 H 100 03/13/18 22:20 03/13/18 22:20 03/13/18 22:20 03/13/18 22:20
[2018-03-13] MEDS ORDERED: IPRATROPIUM/ALBUTEROL 0.5-2.5 MG/3 ML AMPUL NEB ONE (22:39)
[2018-03-13] MEDS ORDERED: METHYLPREDNISOLONE INJ 125 MG/2 ML SDV ONE (22:41)
--- NOTE | 2018-03-13 23:32 | ER Document Report ---
ED Allergic Reaction - General Chief Complaint: Allergic Reaction Stated Complaint: POSS ALLERGIC REACTION,DIFFICULTY BREATHING Time Seen by Provider: 03/13/18 22:25 Mode of Arrival: Ambulatory Information source: Patient, Relative Notes: Patient is a 37-year-old male comes emergency room complaining of having allergic reaction. Patient had a root canal performed this morning he was given Tylenol 3 tablets. He states he took 1 tablet at noon and 1 tablet at 6 PM and 2 hours later he started getting short of breath and the shakes and vomited. Patient states he very seldom takes any kind of medication because he always has a reaction to something. He was also placed on Zithromax but states he has not taken any of the antibiotic. Patient denies any other medical problems. 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 TRAVEL OUTSIDE OF THE [place] 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 Lives with: Family Family History: DM, Hyperlipidemia, Hypertension, Reviewed & Not Pertinent Renal/ Medical History: Denies: Hx Peritoneal Dialysis GI Medical History: Reports: Hx Gastroesophageal Reflux Disease Musculoskeletal Medical History: Psychiatric Medical History: Reports: Hx Anxiety Traumatic Medical History: Past Surgical History: - Immunizations Hx Diphtheria, Pertussis, Tetanus Vaccination: Yes Review of Systems - Review of Systems Constitutional: No symptoms reported EENT: Difficulty swallowing Cardiovascular: No symptoms reported Respiratory: Short of breath, Wheezing Gastrointestinal: No symptoms reported Genitourinary: No symptoms reported Male Genitourinary: No symptoms reported Musculoskeletal: No symptoms reported Skin: No symptoms reported Hematologic/Lymphatic: No symptoms reported Neurological/Psychological: No symptoms reported -: Yes All other systems reviewed and negative Physical Exam - Vital signs Vitals: Temp Pulse BP Pulse Ox 97.9 F 76 133/80 H 100 03/13/18 22:20 03/13/18 22:20 03/13/18 22:20 03/13/18 22:20 Interpretation: Hypertensive - Notes Notes: Well-nourished well-developed 37-year-old male who is in moderate distress. He is somewhat diaphoretic. - General General appearance: Alert, Anxious - HEENT Head: Normocephalic, Atraumatic Eyes: Normal Tympanic membrane: Normal. No: Bulging Sinus: Normal. No: Mastoid, Maxillary, Redness, Swelling, Tenderness Nasal: Normal. No: Purulent discharge, Septal hematoma, Clear rhinorrhea Mouth/Lips: Normal Mucous membranes: Normal Pharynx: Normal. No: Erythema, Exudate, Peritonsillar abscess, Post nasal drainage, Retropharyngeal abscess, Tonsillar hypertrophy, Uvular edema, Potential airway comprom. Neck: Normal, Supple. No: Anterior cervical chain, Posterior cervical chain, Brudzinski, Carotid bruit, Kernig's, Lymphadenopathy, Meningismus, Neck mass, Shotty nodes, Subcutaneous emphysema, Thyroid nodule, Thyromegally - Respiratory Respiratory status: Respiratory distress, Pursed lip breathing, Tachypnea. No: Depressed respirations, Labored, Retractions, Tripod position Chest status: Nontender Breath sounds: Decreased air movement, Nonproductive cough, Wheezing. No: Productive cough, Rales, Rhonchi, Stridor Chest palpation: Normal - Cardiovascular Rhythm: Regular Heart sounds: Normal auscultation Murmur: No - Extremities General upper extremity: Normal inspection, Nontender, Normal ROM, Normal strength General lower extremity: Normal inspection, Nontender, Normal ROM, Normal strength - Neurological Neuro grossly intact: Yes Cognition: Normal Orientation: AAOx4 [place] Coma Scale Eye Opening: Spontaneous [place] Coma Scale Verbal: Oriented [place] Coma Scale Motor: Obeys Commands [place] Coma Scale Total: 15 Speech: Normal - Skin Skin Temperature: Warm Skin Moisture: Diaphoretic Skin irregularity: negative: Rash Course - Re-evaluation Re-evalutation: 03/13/18 23:33 Reexamination patient after treatment shows him to improve substantially. Matter fact patient requested I come back and reevaluate him again because he was feeling so good he wanted to leave and go home. My reevaluation shows that he is much improved he is breathing exchanging air well. He is never had rash or hives or urticaria at all on the body. I am suspicious that this may have been more of a anxiety reaction to the codeine making him feel really bad and it compounded itself into having respiratory distress type situation. At one point patient was guppy breathing not because of angioedema or the throat swelling I believe is secondary to anxiety. Once he relaxed symptomatology cleared up. I am still going to send him home on 3 days worth of steroids of 40 mg of prednisone just to make sure there was no allergic reaction hours response. And he will take Benadryl for any itch that may develop. Patient is okay with this idea. He will stop his Tylenol threes and he will only take ibuprofen for his discomfort and pain. - Vital Signs Vital signs: Temp Pulse Resp BP Pulse Ox 97.9 F 76 133/80 H 100 03/13/18 22:20 03/13/18 22:20 03/13/18 22:20 03/13/18 22:20 Discharge - Discharge Clinical Impression: Allergic reaction Qualifiers: Encounter type: initial encounter Qualified Code(s): T78.40XA - Allergy, unspecified, initial encounter Condition: Stable Disposition: HOME, SELF-CARE Instructions: Acute Allergic Reaction to Drugs ([facility]), Family Physicians / Practices Additional Instructions: Home and rest. Medication as prescribed. As we discussed the steroids to help keep the reaction from returning. You may start your other medication for the root canal the Zithromax pack. But stop the Tylenol [address] You may also take Benadryl if she should develop any type of itching. If you should have any concerns or problems return to ER for recheck. Prescriptions: Prednisone [Deltasone 20 mg Tablet] 2 tab PO DAILY #6 tablet
== END 2018-03-14 00:30 | disposition home or self-care (01) ==
LOC: ER 22:09
DX: T78.40XA Allergy, unspecified, initial encounter (principal); X58.XXXA Exposure to other specified factors, initial encounter; R11.10 Vomiting, unspecified; R06.02 Shortness of breath; R13.10 Dysphagia, unspecified; R06.2 Wheezing; R61 Generalized hyperhidrosis; F17.200 Nicotine dependence, unspecified, uncomplicated; Z88.8 Allergy status to other drugs, medicaments and biological substances
CPT/HCPCS: 94640; 99283; 96374; 96375; J2930; J2060; J2405; J7620

== ENCOUNTER 2018-05-27 01:46 | Emergency (ER) | payer BC ==
[2018-05-27 02:04] VITALS: BP 126/81
[2018-05-27] MEDS ORDERED: KETOROLAC TROMETHAMINE INJ/PF 30 MG/1 ML SDV IV ONE (02:17)
[2018-05-27] MEDS ORDERED: HALOPERIDOL LACTATE INJ 5 MG/1 ML VIAL IV ONE (02:17)
[2018-05-27] MEDS ORDERED: METOCLOPRAMIDE HCL INJ/PF 10 MG/2 ML SDV IV ONE (02:25)
--- NOTE | 2018-05-27 02:29 | ER Document Report ---
ED General - General Chief Complaint: Headache Stated Complaint: HEADACHE Time Seen by Provider: 05/27/18 02:17 Notes: Patient is a 38-year-old male without chronic medical problems who presents with a headache that has been ongoing for the past 8 hours. Patient states that the headaches are gradually in the middle of the afternoon and has gotten progressively worse since that time. He does describe it as a global, throbbing, constant headache. Lights and sounds worsen headache. He is tried Tylenol with no relief of headache. States that he has headaches in the past but has never had a headache of this degree of intensity. He has had one episode of nausea and vomiting with a headache. Denies any history personally or familial of aneurysms. No use of estrogen or history of hypercoagulation. Denies any focal weakness or numbness. No head trauma. Has not seen his primary care doctor regarding today's concerns. TRAVEL OUTSIDE OF THE [place] IN LAST 30 DAYS: No - Related Data Allergies/Adverse Reactions: promethazine HCl [From Phenergan] Allergy (Verified 07/02/16 03:09) Past Medical History - General Information source: Patient - Social History Smoking Status: Never Smoker Frequency of alcohol use: None Drug Abuse: None Lives with: Spouse/Significant other Family History: DM, Hyperlipidemia, Hypertension, Reviewed & Not Pertinent Renal/ Medical History: Denies: Hx Peritoneal Dialysis GI Medical History: Reports: Hx Gastroesophageal Reflux Disease Musculoskeletal Medical History: Psychiatric Medical History: Reports: Hx Anxiety Traumatic Medical History: Past Surgical History: - Immunizations Hx Diphtheria, Pertussis, Tetanus Vaccination: Yes Review of Systems - Review of Systems Notes: Constitutional: Negative for fever. HENT: Negative for sore throat. Eyes: Negative for visual changes. Cardiovascular: Negative for chest pain. Respiratory: Negative for shortness of breath. Gastrointestinal: Negative for abdominal pain, vomiting or diarrhea. Genitourinary: Negative for dysuria. Musculoskeletal: Negative for back pain. Skin: Negative for rash. Neurological: Positive for headache 10 point ROS negative except as marked above and in HPI. Physical Exam - Vital signs Vitals: Temp Pulse Resp BP Pulse Ox 97.5 F 53 L 12 126/81 H 99 05/27/18 02:02 05/27/18 02:02 05/27/18 02:02 05/27/18 02:02 12/30/18 02:02 Interpretation: Bradycardic Notes: PHYSICAL EXAMINATION: GENERAL: Appears moderately uncomfortable but in no acute distress HEAD: Atraumatic, normocephalic. EYES: Pupils equal round and reactive to light, extraocular movements intact, sclera anicteric, conjunctiva are normal. ENT: nares patent, oropharynx clear without exudates. Moist mucous membranes. NECK: Normal range of motion, supple without lymphadenopathy LUNGS: Breath sounds clear to auscultation bilaterally and equal. No wheezes rales or rhonchi. HEART: Regular rate and rhythm without murmurs ABDOMEN: Soft, nontender, normoactive bowel sounds. No guarding, no rebound. No masses appreciated. EXTREMITIES: Normal range of motion, no pitting or edema. No cyanosis. NEUROLOGICAL: Face symmetric. Tongue protrudes midline. Extraocular motions intact. Pupils are 2 mm and equally reactive. Normal speech, normal gait. 5 out of 5 strength in both the distal and proximal upper and lower extremities bilaterally. Sensation is grossly intact throughout. Finger to nose testing normal. Pronator drift normal. PSYCH: Normal mood, normal affect. SKIN: Warm, Dry, normal turgor, no rashes or lesions noted. Course - Re-evaluation Re-evalutation: 05/27/18 02:26 Presentation of a headache that appears to be most consistent with tension versus migrainous type headache. Headache was not maximal in onset, patient has no focal neurologic deficits, no nuchal rigidity, vital signs within normal limits, no papilledema, and patient is overall well in appearance. Based on clinical history and examination I do not suspect an acute subarachnoid hemorrhage, dural venous sinus thrombosis, acute meningitis, or intercranial mass. Given my low clinical suspicion for any acute life-threatening etiology, I do not feel advanced neuro imaging or laboratory testing is indicated at this time. Will proceed with headache cocktail and reassess. 05/27/18 03:02 Patient has had complete resolution of his headache after receiving met oclopramide. States he feels very well and would like to go home. At this time will discharge with return precautions and follow-up recommendations. Verbal discharge instructions given a the bedside and opportunity for questions given. Medication warnings reviewed. Patient is in agreement with this plan and has verbalized understanding of return precautions and the need for primary care follow-up in the next 24-72 hours. - Vital Signs Vital signs: Temp Pulse Resp BP Pulse Ox 97.5 F 53 L 12 126/81 H 99 05/27/18 02:02 05/27/18 02:02 05/27/18 02:02 05/27/18 02:02 05/27/18 02:02 Discharge - Discharge Clinical Impression: Headache Qualifiers: Headache type: unspecified Headache chronicity pattern: acute headache Intractability: not intractable Qualified Code(s): R51 - Headache Condition: Good Disposition: HOME, SELF-CARE Additional Instructions: You have been seen in the Emergency Department (ED) for a headache. Please use Tylenol (acetaminophen) or Motrin (ibuprofen) as needed for symptoms, but only as written on the box. As we have discussed, please follow up with your primary care doctor as soon as possible regarding today's ED visit and your headache symptoms. Call your doctor or return to the ED if you have a worsening headache, sudden and severe headache, confusion, slurred speech, facial droop, weakness or numbness in any arm or leg, extreme fatigue, or other symptoms that concern you.
== END 2018-05-27 03:15 | disposition home or self-care (01) ==
LOC: ER 01:46
DX: R51 Headache (principal); R11.2 Nausea with vomiting, unspecified
CPT/HCPCS: 99283; 96374; 96375; J1885; J2765

== ENCOUNTER 2019-04-02 19:41 | Emergency (ER) | payer BC, OTHER ==
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
== END 2019-04-02 20:40 | disposition home or self-care (01) ==
LOC: ER 19:41
DX: S69.91XA Unspecified injury of right wrist, hand and finger(s), initial encounter (principal); M79.641 Pain in right hand; W22.8XXA Striking against or struck by other objects, initial encounter
CPT/HCPCS: 99283; L3908

== ENCOUNTER 2019-04-04 14:45 | Emergency (ER) | payer OTHER ==
[2019-04-04 14:50] VITALS: BP 117/74
--- NOTE | 2019-04-04 15:52 | ER Document Report ---
HPI - HPI Time Seen by Provider: 04/04/19 15:40 Notes: Presents emergency room for splint placement, patient had a right hand x-ray done 2 days ago, radiology reads were down due to technological issue, the radiologist did see 1/5 metacarpal fracture on the oblique view of the hand x- ray. Patient was placed in a cock-up splint days ago, this provider did call patient and advised that he does need a gutter splint. Patient return to the emergency room today for gutter splint to be placed due to a boxer's fracture on the right. Patient was not wearing the cock-up splint that was placed 2 days ago. Patient does have an appointment tomorrow morning with the rfid specialist for reevaluation who did review his x-rays today and stated that he does need a denies any numbness or tingling. Pain is 2 out of 10, throbbing achy. Denies any fevers or chills. Has been applying heat, has not tried any ibuprofen.cast. Past Medical History - General Information source: Patient - Social History Smoking Status: Unknown if Ever Smoked Family History: DM, Hyperlipidemia, Hypertension, Reviewed & Not Pertinent Renal/ Medical History: Denies: Hx Peritoneal Dialysis GI Medical History: Reports: Hx Gastroesophageal Reflux Disease Musculoskeletal Medical History: Psychiatric Medical History: Reports: Hx Anxiety Traumatic Medical History: Past Surgical History: - Immunizations Hx Diphtheria, Pertussis, Tetanus Vaccination: Yes Vertical Provider Document - CONSTITUTIONAL Agree With Documented VS: Yes Exam Limitations: No Limitations General Appearance: WD/WN Notes: PHYSICAL EXAMINATION:reviewed vital signs by RN GENERAL: Well-appearing, well-nourished and in no acute distress. HEAD: Atraumatic, normocephalic. EYES: Pupils equal round and reactive to light, extraocular movements intact, sclera anicteric, conjunctiva are normal. ENT: Nares patent, oropharynx clear without exudates. Moist mucous membranes. NECK: Normal range of motion, supple without lymphadenopathy LUNGS: Breath sounds clear to auscultation bilaterally and equal. No wheezes rales or rhonchi. HEART: Regular rate and rhythm without murmurs ABDOMEN: Soft, nontender, nondistended abdomen. No guarding, no rebound. No masses appreciated. Musculoskeletal: Normal range of motion, no pitting or edema. No cyanosis. Noted pain with flexion, extension, abduction, adduction of digit #5th metacarpal. Full motor and sensory function in LUIS. Re Dye Hand + 2 BUE equally. Snuffbox tenderness neg on right. . Ulnar and radial pulses + 2 BUE equally. DTRs +2 in bilateral upper extremities equally. No deformity noted of hand or wrist bilaterally. Normal flexion, extension, ulnar/radial deviation. Negative kanavels sign. No open wounds or drainage from wrist. No vascular compromise. full motor and sensory function with medial, radial and ulnar nerves bilaterally and equally. NEUROLOGICAL: Cranial nerves grossly intact. Normal speech, normal gait. Normal sensory, motor exams PSYCH: Normal mood, normal affect. SKIN: Warm, Dry, normal turgor, no rashes or lesions noted. - INFECTION CONTROL TRAVEL OUTSIDE OF THE [place] IN LAST 30 DAYS: No Course - Re-evaluation Re-evalutation: 04/04/19 16:57 Consent by patient given to place gutter splint,. cms intact, sensory motor function intact in bilateral upper extremities prior to splint application fiberglass splint placed without incident. cms intact 20 minutes after splint application. Splint is in good alignment. Bilateral upper extremities with motor and sensory function intact 20 minutes after application. Pt stated that splint felt comfortable. Follow-up with rfid specialist mild already scheduled. Alternate between Tylenol and ibuprofen for pain control. After performing a Medical Screening Examination, I estimate there is LOW risk for OPEN FRACTURE, COMPARTMENT SYNDROME, DEEP VENOUS THROMBOSIS, ACUTE TENDON RUPTURE, or NEUROVASCULAR INJURY thus I consider the discharge disposition reasonable. I have reevaluated this patient multiple times and no significant life threatening changes are noted. The patient and I have discussed the diagnosis and risks, and we agree with discharging home to closely follow-up with their primary doctor or the referral orthopedist with the understanding that symptoms and presentations can change. We also discussed returning to the Emergency Department immediately if new or worsening symptoms occur. We have discussed the symptoms which are most concerning (e.g., changing or worsening pain, numbness, weakness) that necessitate immediate return - Vital Signs Vital signs: Temp Pulse Resp BP Pulse Ox 98.3 F 89 18 117/74 96 04/04/19 14:46 04/04/19 14:46 04/04/19 14:46 04/04/19 14:46 04/04/19 14:46 Discharge - Discharge Clinical Impression: Closed fracture of 5th metacarpal Condition: Stable Disposition: HOME, SELF-CARE Instructions: Fractured Fifth Metacarpal ([facility]), Temporary Splint ([facility]), Splint Precautions ([facility]), Compartment Syndrome Cautions ([facility]) Additional Instructions: Orthopedic Office [facility] [address] [address] phone: [phone] return immediately for any new or worsening symptoms. Follow up with primary care provider, call tomorrow to make followup appointment. Prescriptions: Meloxicam [Mobic] 7.5 mg PO DAILY #7 tablet Referrals: LEATHA JACKSON MD [Primary Care Provider] - Follow up as needed KALLIE BERG JR, [ACTIVE PROVISIONAL STAFF] - Follow up as needed
== END 2019-04-04 16:15 | disposition home or self-care (01) ==
LOC: ER 14:45
DX: S62.306A Unspecified fracture of fifth metacarpal bone, right hand, initial encounter for closed fracture (principal); X58.XXXA Exposure to other specified factors, initial encounter